=== PATIENT | female | born 1995 | race Hispanic/Latino ===

== ENCOUNTER 2023-08-23 20:01 | Emergency (ER) | payer BC, MEDICAID ==
[2023-08-23] MEDS ORDERED: Lactated Ringers 1,000 ML IV ONE (20:30)
[2023-08-23] MEDS ORDERED: Sodium Chloride 0.9% 10 ML Syringe FLUSH PRN (20:30)
[2023-08-23] MEDS ORDERED: Ondansetron 4 MG/2 ML SDV IVPUSH ONE (20:31)
[2023-08-23 20:46] LABS: BASOPHILS ABSOLUTE AUTO 0.1 K/mm3 (0.0-0.2); BASOPHILS PERCENT AUTO 0.3 % (0.0-1.0); EOSINOPHILS ABSOLUTE AUTO 0.2 K/mm3 (0.0-0.4); EOSINOPHILS PERCENT AUTO 0.8 % (0.0-6.0); HEMATOCRIT 43.5 % (37.0-47.0); HEMOGLOBIN 14.9 gm/dl (12.0-16.0); IMMATURE GRAN ABSOLUTE AUTO 0.07 K/mm3 (0.00-0.05); IMMATURE GRAN PERCENT AUTO 0.3 % (0.0-0.4); LYMPHOCYTES PERCENT AUTO 13.2 % (24.0-44.0); MEAN CORPUSCULAR HEMOGLOBIN 27.4 pg (28.0-32.0); MEAN CORPUSCULAR HGB CONC 34.3 g/dl (32.0-36.0); MEAN CORPUSCULAR VOLUME 80.1 fl (83.0-99.0); MEAN PLATELET VOLUME 8.7 fl (9.4-12.3); MONOCYTES ABSOLUTE AUTO 1.8 K/mm3 (0.0-0.8); MONOCYTES PERCENT AUTO 7.8 % (0.0-8.0); NEUTROPHILS ABSOLUTE AUTO 17.4 K/mm3 (1.8-7.7); NEUTROPHILS PERCENT AUTO 77.6 % (41.0-71.0); PLATELET COUNT,PLT 337 K/mm3 (150-400); RED BLOOD CELL COUNT 5.43 M/mm3 (4.10-5.30); WHITE BLOOD CELL COUNT,WBC 22.48 K/mm3 (3.9-11.3)
[2023-08-23 21:11] LABS: SLIDE REVIEW ABNORMAL SMEAR
[2023-08-23 21:13] LABS: A/G RATIO 0.9 (1-2); ANION GAP 15.2 (5-15); BILIRUBIN TOTAL 0.2 mg/dL (0.2-1.0); BUN/CREATININE RATIO 12.2 (14-18); CALCIUM 8.8 mg/dL (8.5-10.1); CREATININE 0.9 mg/dL (0.55-1.02); EST CRCL DRUG DOSING (CG) 80.36 mL/min; MAGNESIUM 1.8 mg/dL (1.8-2.4); POTASSIUM,K 4.2 mEq/L (3.5-5.1); PROTEIN TOTAL,TP 8.7 g/dl (6.4-8.2)
== END 2023-08-23 21:45 | disposition home or self-care (01) ==
LOC: JD.ED 20:01
DX: A08.4 Viral intestinal infection, unspecified (principal)
CPT/HCPCS: 36415; 80053; 83735; 85025; 96361; 96374; 99284; J2405; J3490; J7120

== ENCOUNTER 2023-10-22 23:31 | Emergency (ER) | payer BC ==
[2023-10-23] MEDS ORDERED: Magnesium Citrate Solution 296 ML Bottle PO ONE (00:36)
[2023-10-23] MEDS ORDERED: Dicyclomine 10 MG Cap PO ONE (00:39)
== END 2023-10-23 00:47 | disposition home or self-care (01) ==
LOC: JD.ED 23:31
DX: K59.01 Slow transit constipation (principal); F17.210 Nicotine dependence, cigarettes, uncomplicated; Z90.49 Acquired absence of other specified parts of digestive tract; Z79.899 Other long term (current) drug therapy
CPT/HCPCS: 74018; 99284; A9270

== ENCOUNTER 2024-02-20 19:02 | Emergency (ER) | payer BC ==
[2024-02-20] MEDS ORDERED: Sodium Chloride 0.9% 10 ML Syringe FLUSH PRN (19:04)
[2024-02-20] MEDS: Ondansetron 4 MG Tab.DIS PO ONE (19:47)
[2024-02-20] MEDS: Sucralfate Suspension 1 GM/10 ML Cup PO ONE (19:47)
[2024-02-20 20:04] LABS: BASOPHILS ABSOLUTE AUTO 0.1 K/mm3 (0.0-0.2); BASOPHILS PERCENT AUTO 0.4 % (0.0-1.0); EOSINOPHILS ABSOLUTE AUTO 0.2 K/mm3 (0.0-0.4); EOSINOPHILS PERCENT AUTO 1.5 % (0.0-6.0); HEMATOCRIT 46.1 % (37.0-47.0); HEMOGLOBIN 15.6 gm/dl (12.0-16.0); IMMATURE GRAN ABSOLUTE AUTO 0.05 K/mm3 (0.00-0.05); IMMATURE GRAN PERCENT AUTO 0.4 % (0.0-0.4); LYMPHOCYTES ABSOLUTE AUTO 3.5 K/mm3 (1.0-4.8); LYMPHOCYTES PERCENT AUTO 26.3 % (24.0-44.0); MEAN CORPUSCULAR HEMOGLOBIN 27.2 pg (28.0-32.0); MEAN CORPUSCULAR HGB CONC 33.8 g/dl (32.0-36.0); MEAN CORPUSCULAR VOLUME 80.5 fl (83.0-99.0); MEAN PLATELET VOLUME 10.3 fl (9.4-12.3); MONOCYTES ABSOLUTE AUTO 0.8 K/mm3 (0.0-0.8); MONOCYTES PERCENT AUTO 6.2 % (0.0-8.0); NEUTROPHILS ABSOLUTE AUTO 8.8 K/mm3 (1.8-7.7); NEUTROPHILS PERCENT AUTO 65.2 % (41.0-71.0); PLATELET COUNT,PLT 250 K/mm3 (150-400); RED BLOOD CELL COUNT 5.73 M/mm3 (4.10-5.30); WHITE BLOOD CELL COUNT,WBC 13.43 K/mm3 (3.9-11.3)
[2024-02-20 20:27] LABS: A/G RATIO 0.9 (1-2); ALANINE AMINOTRANSFERASE,ALT 57 U/L (14-59); ALKALINE PHOSPHATASE 76 U/L (46-116); ANION GAP 18.7 (5-15); BILIRUBIN TOTAL 0.2 mg/dL (0.2-1.0); BLOOD UREA NITROGEN,BUN 13 mg/dL (7-18); BUN/CREATININE RATIO 16.3 (14-18); CALCIUM 8.9 mg/dL (8.5-10.1); CARBON DIOXIDE,CO2 23 mEq/L (21-32); CHLORIDE,CL 99 mEq/L (98-107); CREATININE 0.8 mg/dL (0.55-1.02); EST CRCL DRUG DOSING (CG) 94.21 mL/min; ESTIMATED GFR 103 mL/min (>60); LIPASE 35 U/L (16-77); MAGNESIUM 2.1 mg/dL (1.8-2.4); PROTEIN TOTAL,TP 8.6 g/dl (6.4-8.2); SODIUM,NA 137 mEq/L (136-145)
[2024-02-20 20:28] LABS: C-REACTIVE PROTEIN < 0.05 mg/dL (<0.30); HCG QUANTITATIVE < 1.0 mIU/mL
[2024-02-20 20:30] LABS: GLUCOSE RANDOM 102 mg/dL (70-99); POTASSIUM,K 3.7 mEq/L (3.5-5.1)
[2024-02-20 21:24] LABS: APPEARANCE,URINE CLEAR (Clear); BILIRUBIN,URINE NEGATIVE (Negative); COLOR,URINE YELLOW (Yellow); GLUCOSE,URINE NEGATIVE (Negative); KETONES,URINE NEGATIVE (Negative); LEUKOCYTE ESTERASE,URINE NEGATIVE (Negative); NITRITE,URINE NEGATIVE (Negative); OCCULT BLOOD,URINE NEGATIVE (Negative); PROTEIN,URINE NEGATIVE (Negative); UROBILINOGEN,URINE 0.2 (0.2-1.0)
== END 2024-02-20 22:08 | disposition home or self-care (01) ==
LOC: JD.ED 19:02
DX: K25.3 Acute gastric ulcer without hemorrhage or perforation (principal); T47.6X5A Adverse effect of antidiarrheal drugs, initial encounter; Z79.899 Other long term (current) drug therapy
CPT/HCPCS: 36415; 76705; 80053; 81003; 83690; 83735; 84702; 85025; 86140; 99284; A9270

== ENCOUNTER 2024-03-01 19:39 | Emergency (ER) | payer BC ==
[2024-03-01] MEDS ORDERED: Sodium Chloride 0.9% 10 ML Syringe FLUSH PRN (20:51)
[2024-03-01 21:10] LABS: BASOPHILS ABSOLUTE AUTO 0.1 K/mm3 (0.0-0.2); BASOPHILS PERCENT AUTO 0.3 % (0.0-1.0); EOSINOPHILS ABSOLUTE AUTO 0.2 K/mm3 (0.0-0.4); EOSINOPHILS PERCENT AUTO 1.3 % (0.0-6.0); HEMATOCRIT 40.7 % (37.0-47.0); HEMOGLOBIN 13.6 gm/dl (12.0-16.0); IMMATURE GRAN ABSOLUTE AUTO 0.09 K/mm3 (0.00-0.05); IMMATURE GRAN PERCENT AUTO 0.6 % (0.0-0.4); LYMPHOCYTES ABSOLUTE AUTO 2.7 K/mm3 (1.0-4.8); LYMPHOCYTES PERCENT AUTO 17.3 % (24.0-44.0); MEAN CORPUSCULAR HEMOGLOBIN 27.2 pg (28.0-32.0); MEAN CORPUSCULAR HGB CONC 33.4 g/dl (32.0-36.0); MEAN CORPUSCULAR VOLUME 81.4 fl (83.0-99.0); MONOCYTES ABSOLUTE AUTO 0.9 K/mm3 (0.0-0.8); MONOCYTES PERCENT AUTO 5.6 % (0.0-8.0); NEUTROPHILS ABSOLUTE AUTO 11.7 K/mm3 (1.8-7.7); NEUTROPHILS PERCENT AUTO 74.9 % (41.0-71.0); PLATELET COUNT,PLT 285 K/mm3 (150-400); WHITE BLOOD CELL COUNT,WBC 15.58 K/mm3 (3.9-11.3)
[2024-03-01 21:18] LABS: APPEARANCE,URINE CLEAR (Clear); BILIRUBIN,URINE NEGATIVE (Negative); COLOR,URINE YELLOW (Yellow); GLUCOSE,URINE NEGATIVE (Negative); KETONES,URINE NEGATIVE (Negative); LEUKOCYTE ESTERASE,URINE NEGATIVE (Negative); NITRITE,URINE NEGATIVE (Negative); OCCULT BLOOD,URINE NEGATIVE (Negative); PROTEIN,URINE NEGATIVE (Negative); UROBILINOGEN,URINE 0.2 (0.2-1.0)
[2024-03-01 21:31] LABS: ALBUMIN 3.6 g/dl (3.4-5.0); ANION GAP 12.9 (5-15); BILIRUBIN TOTAL 0.2 mg/dL (0.2-1.0); CALCIUM 8.3 mg/dL (8.5-10.1); EST CRCL DRUG DOSING (CG) 72.32 mL/min; PROTEIN TOTAL,TP 7.4 g/dl (6.4-8.2)
[2024-03-01 21:33] LABS: BACTERIA,URINE FEW /hpf (FEW); MUCUS,URINE NOT SEEN /hpf (FEW); RBC,URINE 0-5 /hpf (0-5); SQUAMOUS EPITHELIAL CELLS,UR 0-5 /hpf (0-5); WBC,URINE 0-5 /hpf (0-5)
[2024-03-01 21:38] LABS: POTASSIUM,K 3.9 mEq/L (3.5-5.1)
[2024-03-01] MEDS: Sodium Chloride 0.9% 1,000 ML IV STA (21:44)
[2024-03-01] MEDS: Famotidine 20 MG/2 ML SDV IVPUSH ONE (21:46)
[2024-03-01] MEDS: HYDROmorphone 0.5 MG/0.5 ML Syringe IVPUSH ONE (21:48)
[2024-03-01] MEDS: Sodium Chloride 0.9% 10 ML Syringe FLUSH PRN (21:49)
[2024-03-01] MEDS: Iopamidol 612 MG/ML 100 ML Bottle IVPUSH ONE (22:07)
[2024-03-01] MEDS: Metoclopramide 10 MG/2 ML SDV IVPUSH ONE (22:31)
== END 2024-03-01 23:31 | disposition home or self-care (01) ==
LOC: JD.ED 19:39
DX: N83.202 Unspecified ovarian cyst, left side (principal); K29.00 Acute gastritis without bleeding; N70.11 Chronic salpingitis; Z79.899 Other long term (current) drug therapy
CPT/HCPCS: 36415; 74177; 80053; 81001; 83690; 84703; 85025; 96361; 96374; 96375; 99284; J1170; J2765; J3490; J7030; Q9967

== ENCOUNTER 2025-04-16 19:08 | Emergency (ER) | payer SELFPAY | END 2025-04-16 20:55 | disposition home or self-care (01) | LOC: JD.ED 19:08 | DX: S90.112A Contusion of left great toe without damage to nail, initial encounter (principal); Z87.891 Personal history of nicotine dependence; Z79.899 Other long term (current) drug therapy; W20.8XXA Other cause of strike by thrown, projected or falling object, initial encounter | CPT/HCPCS: 73630-26-LT; 73630-LT; 99283 ==